=== PATIENT | male | born 1960 | race Caucasian/White ===

== ENCOUNTER 2024-05-13 12:28 | Emergency (ER) | payer SELFPAY ==
[~2024-05-13] VITALS: Ht 182.9 cm; Wt 89.0 kg
[2024-05-13 12:30] VITALS: O2SAT 99
[2024-05-13] MEDS: TETANUS AND DIPHTHERIA TOX/PF 0.5ML SYR (ADULT) IM ONE (14:56)
[2024-05-13] MEDS: ACETAMINOPHEN 325MG TABLET PO ONE (14:56)
[2024-05-13 16:21] VITALS: BP 135/84; PULSE 84; RESP 18; TEMP 37.2; O2SAT 99
== END 2024-05-13 16:29 | disposition home or self-care (01) ==
LOC: ER 12:28
DX: S09.8XXA Other specified injuries of head, initial encounter (principal); F10.10 Alcohol abuse, uncomplicated; I10 Essential (primary) hypertension; Y90.9 Presence of alcohol in blood, level not specified; X58.XXXA Exposure to other specified factors, initial encounter; Y93.01 Activity, walking, marching and hiking; Y92.89 Other specified places as the place of occurrence of the external cause; Y99.8 Other external cause status
CPT/HCPCS: 70450; 70486; 90714; 90471; 99285; Z7610 ×2